=== PATIENT | male | born 1995 | race Caucasian/White ===

== ENCOUNTER 2018-10-23 16:06 | Emergency (ER) | payer MEDICAID, OTHER ==
[2018-10-23 16:26] VITALS: BP 149/83
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
[2018-10-23] MEDS: IBUPROFEN 800 MG TABLET PO STA (17:49)
== END 2018-10-23 17:56 | disposition home or self-care (01) ==
LOC: ED 16:06
DX: S62.362A Nondisplaced fracture of neck of third metacarpal bone, right hand, initial encounter for closed fracture (principal); V48.4XXA Person boarding or alighting a car injured in noncollision transport accident, initial encounter
CPT/HCPCS: 29125; 73130; 99283; A9270

== ENCOUNTER 2020-02-25 08:01 | Emergency (ER) | payer MEDICAID ==
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
[2020-02-25 10:24] VITALS: BP 120/84
== END 2020-02-25 10:31 | disposition home or self-care (01) ==
LOC: ED 08:01
DX: N50.812 Left testicular pain (principal); I86.1 Scrotal varices
CPT/HCPCS: 76870; 93976; 99283; 99284